=== PATIENT | female | born 1990 ===

== ENCOUNTER 2020-12-07 15:57 | Emergency (ER) | payer SELFPAY ==
[~2020-12-07] VITALS: Ht 170.2 cm; Wt 177.3 kg
[2020-12-07 16:10] VITALS: BP 154/87; Ht 170.2 cm; Wt 177.3 kg
[2020-12-07] MEDS ORDERED: STERAPRED DS 1010 MG PO (16:47)
== END 2020-12-07 17:42 | disposition home or self-care (01) ==
LOC: D.ER 15:57
DX: J02.9 Acute pharyngitis, unspecified (principal); J00 Acute nasopharyngitis [common cold]; I10 Essential (primary) hypertension